=== PATIENT | female | born 1955 | race Caucasian/White ===

== ENCOUNTER → 2016-06-25 | Outpatient (CLI) | payer OTHER ==
[~2016-06-25] MED LIST: CALC150C PO; CETI10TA84 PO; CHOL200010 PO; CYAN100020 SL; CYCL10TA6 PO; LEVO125T5 PO; MULT-506 PO; NASONEX NAE; NXM/40 PO; TRAM-10 PO
[2016-06-25 09:34] LABS: BASO % 0.2 %; BASO ABS # 0.01 K/uL (0-0.2); COMPLETE YES; EOS % 1.2 %; HEMATOCRIT 39.6 % (37-47); LYMPH % 44.1 %; MEAN CELL VOLUME 90.6 fL (80-100); MEAN CORPUSCULAR HEMOGLOBIN 29.7 pg (25-34); MEAN CORPUSCULAR HGB CONC 32.8 g/dl (32-36); MEAN PLATELET VOLUME 9.7 fL (7.4-10.4); MONO % 7.1 %; NEUT % 47.4 %; PLATELET COUNT 207 K/uL (130-400); RED BLOOD COUNT 4.37 M/uL (4.2-5.4); WHITE BLOOD COUNT 4.08 K/uL (4.8-10.8)
[2016-06-25 09:50] LABS: ALKALINE PHOSPHATASE 56 U/L (45-117); ALT/SGPT 24 U/L (12-78); AST/SGOT 18 U/L (15-37); BLOOD UREA NITROGEN 14 mg/dl (7-18); BUN/CREATININE RATIO 23.1 (10-20); CALCIUM 9.3 mg/dl (8.5-10.1); CARBON DIOXIDE 33 mmol/L (21-32); CHLORIDE 107 mmol/L (98-107); CREATININE 0.62 mg/dl (0.60-1.20); GLUCOSE 87 mg/dl (70-99); HDL CHOLESTEROL 61 mg/dl; POTASSIUM 3.9 mmol/L (3.5-5.1); SODIUM 143 mmol/L (136-145); TRIGLYCERIDES 128 mg/dl (0-150); VERY LOW DENSITY LIPOPROT CALC 26 mg/dl
[2016-06-25 10:06] LABS: ALB/GLOB RATIO 1.1 (0.9-2); CHOLESTEROL 197 mg/dl (0-200); CHOLESTEROL/HDL RATIO 3.2; LDL CHOLESTEROL CALCULATED 110 mg/dl; THYROID STIMULATING HORMONE 0.972 uIu/ml (0.300-4.500)
== END | disposition home or self-care (01) ==
LOC: C.LAB 07:38
PROVIDERS: ATTEND Internal Medicine
DX: E78.5 Hyperlipidemia, unspecified (principal); E88.9 Metabolic disorder, unspecified; E06.3 Autoimmune thyroiditis; E55.9 Vitamin D deficiency, unspecified

== ENCOUNTER → 2016-06-26 | Outpatient (CLI) | payer OTHER ==
--- NOTE | 2016-06-27 13:18 | MAMMOGRAPHY REPORT ---
BILATERAL DIGITAL SCREENING MAMMOGRAM TOMOSYNTHESIS WITH CAD: 06/26/2016 CLINICAL HISTORY: Routine screening. Patient has no complaints. TECHNIQUE: Breast tomosynthesis in addition to standard 2D mammography was performed. Current study was also evaluated with a Computer Aided Detection (CAD) system. COMPARISON: Comparison is made to exams dated: 06/21/2015 mammogram, 09/14/2011 mammogram, 09/11/2010 m ammogram - [facility], 09/14/2008, 07/23/2006, and 09/29/2004 mammogram - [facility]. BREAST COMPOSITION: There are scattered areas of fibroglandular density in both breasts. FINDINGS: A linear scar marker overlies the upper outer quadrant of the left breast. There are stab le intramammary lymph nodes in the left lateral breast. Scattered benign-appearing microcalcificati ons. No new suspicious mass, architectural distortion or cluster of microcalcifications is seen. IMPRESSION: ACR BI-RADS CATEGORY 2: BENIGN There is no mammographic evidence of malignancy. A 1 year screening mammogram is recommended. The p atient will receive written notification of the results. Approximately 10% of breast cancers are not detected with mammography. A negative mammographic repor t should not delay biopsy if a clinically suggestive mass is present. Dayan Bashir M.D. ay/:06/26/2016 17:03:01 Booster Pump Operator: Antoinette HAMPTON(Guido)([place]), [facility] letter sent: Normal 1/2 BI-RADS Code: ACR BI-RADS Category 2: Benign
== END | disposition home or self-care (01) ==
LOC: C.MAMM 15:08
PROVIDERS: ATTEND Internal Medicine
DX: Z12.31 Encounter for screening mammogram for malignant neoplasm of breast (principal); Z80.3 Family history of malignant neoplasm of breast

== ENCOUNTER → 2016-08-31 | Outpatient (CLI) | payer OTHER ==
[~2016-08-31] MED LIST changes: +LEVO125T4 PO; -LEVO125T5 PO
--- NOTE | 2016-08-31 14:30 | DIAGNOSTIC IMAGING REPORT ---
LEFT HIP UNILATERAL 2 VIEWS CLINICAL HISTORY: Left hip pain COMPARISON: None. DISCUSSION: No acute fractures or dislocations are visualized. There are no erosive or destructive changes. The joint space appears relatively well preserved for age. There is subtle calcification of the labrum IMPRESSION: No acute fractures. No evidence of significant joint space narrowing Electronically signed by: Raf Brice M.D. 08/31/2016 2:29 PM Dictated Date/Time: 08/31/2016 2:28 PM
--- NOTE | 2016-08-31 14:31 | DIAGNOSTIC IMAGING REPORT ---
RIGHT HIP UNILATERAL 2 VIEWS CLINICAL HISTORY: Right hip pain COMPARISON: None. DISCUSSION: No acute fractures are visualized. There are no erosive or destructive changes. There is mild osteoarthritic change with mild joint space narrowing. There is no evidence for soft tissue swelling. IMPRESSION: Mild osteoarthritic change. No fractures identified. Electronically signed by: Raf Brice M.D. 08/31/2016 2:30 PM Dictated Date/Time: 08/31/2016 2:29 PM
== END | disposition home or self-care (01) ==
LOC: C.RAD1850 14:12
PROVIDERS: ATTEND Internal Medicine
DX: M25.559 Pain in unspecified hip (principal)

== ENCOUNTER → 2016-11-29 | Outpatient (CLI) | payer OTHER ==
--- NOTE | 2016-11-29 15:44 | DIAGNOSTIC IMAGING REPORT ---
BONE SCAN 3 PHASE LIMITED CLINICAL HISTORY: Right knee pain. History of bilateral total knee arthroplasties. COMPARISON STUDY: Bone scan performed July 2008, conventional radiographic study dated 11/26/2016 FINDINGS: The patient was injected with 25.7 mCi of technetium 99m MDP. A vascular sequence centered on the knees was performed. Blood flow appear normal and symmetric. Blood pool images reveal photopenic defects consistent with bilateral knee arthroplasties. Blood pool images were otherwise normal. Delayed images of both lower legs were performed. There are photopenic defects involving each the consistent with bilateral knee arthroplasties. There is very minor asymmetric increased activity within the proximal tibial metaphysis beneath the prosthesis. This remains unchanged from the 2008 study and is unlikely to be of clinical significance. Activity is otherwise symmetric. IMPRESSION: No change from the 2009 study. Evidence of bilateral total knee arthroplasties. No significant pathologic activity Electronically signed by: Raf Brice M.D. 11/29/2016 3:42 PM Dictated Date/Time: 11/29/2016 3:38 PM
== END | disposition home or self-care (01) ==
LOC: C.NUCL 12:03
PROVIDERS: ATTEND Orthopaedic Surgery Sports Medicine
DX: T84.84XA Pain due to internal orthopedic prosthetic devices, implants and grafts, initial encounter (principal); Y83.1 Surgical operation with implant of artificial internal device as the cause of abnormal reaction of the patient, or of later complication, without mention of misadventure at the time of the procedure

== ENCOUNTER → 2017-06-27 | Outpatient (CLI) | payer OTHER ==
[~2017-06-27] MED LIST changes: -LEVO125T4 PO; +LEVO125T5 PO
--- NOTE | 2017-06-28 07:49 | MAMMOGRAPHY REPORT ---
BILATERAL DIGITAL SCREENING MAMMOGRAM TOMOSYNTHESIS WITH CAD: 06/27/2017 CLINICAL HISTORY: Routine screening. Patient has no complaints. TECHNIQUE: Breast tomosynthesis in addition to standard 2D mammography was performed. Current study was also evaluated with a Computer Aided Detection (CAD) system. COMPARISON: Comparison is made to exams dated: 06/26/2016 mammogram, 06/21/2015 mammogram, 09/14/2011 jordy mogram, 09/11/2010 mammogram - [facility], 09/14/2008, and 07/23/2006. BREAST COMPOSITION: There are scattered areas of fibroglandular density in both breasts. FINDINGS: No suspicious masses, calcifications, or areas of architectural distortion are noted in ei ther breast. There has been no significant interval change compared to prior exams. Bilateral benign -appearing calcifications are not significantly changed. A linear scar marker denotes a scar on the left superior breast. IMPRESSION: ACR BI-RADS CATEGORY 2: BENIGN There is no mammographic evidence of malignancy. A 1 year screening mammogram is recommended. The pa tient will receive written notification of the results. Approximately 10% of breast cancers are not detected with mammography. A negative mammographic report should not delay biopsy if a clinically suggestive mass is present. Cristal Garza M.D. ah/:06/27/2017 16:39:04 Mill Worker: Rashmi HAMPTON(Guido)([place])([place]), [facility] letter sent: Normal 1/2 BI-RADS Code: ACR BI-RADS Category 2: Benign
== END | disposition home or self-care (01) ==
LOC: C.MAMM 15:00
PROVIDERS: ATTEND Internal Medicine
DX: Z12.31 Encounter for screening mammogram for malignant neoplasm of breast (principal)

== ENCOUNTER → 2017-09-24 | Outpatient (CLI) | payer OTHER ==
[2017-09-24 13:04] LABS: BASO ABS # 0.04 K/uL (0-0.2); EOS % 1.7 %; EOS ABS # 0.07 K/uL (0-0.5); HEMATOCRIT 39.9 % (37-47); HEMOGLOBIN 13.2 g/dL (12.0-16.0); IG# 0.01 K/uL (0.00-0.02); LYMPH % 47.6 %; LYMPH ABS # 1.99 K/uL (1.2-3.4); MEAN CELL VOLUME 88.5 fL (80-100); MEAN CORPUSCULAR HEMOGLOBIN 29.3 pg (25-34); MEAN CORPUSCULAR HGB CONC 33.1 g/dl (32-36); MONO % 7.4 %; MONO ABS # 0.31 K/uL (0.11-0.59); NEUT % 42.1 %; NEUT ABS # 1.76 K/uL (1.4-6.5); PLATELET COUNT 229 K/uL (130-400); WHITE BLOOD COUNT 4.18 K/uL (4.8-10.8)
[2017-09-24 14:10] LABS: ALBUMIN 3.5 gm/dl (3.4-5.0); ALKALINE PHOSPHATASE 62 U/L (45-117); ALT/SGPT 19 U/L (12-78); AST/SGOT 18 U/L (15-37); BLOOD UREA NITROGEN 18 mg/dl (7-18); CALCIUM 8.4 mg/dl (8.5-10.1); CARBON DIOXIDE 25 mmol/L (21-32); CHOLESTEROL 185 mg/dl (0-200); CREATININE 0.64 mg/dl (0.60-1.20); GLUCOSE 87 mg/dl (70-99); LDL CHOLESTEROL CALCULATED 107 mg/dl; POTASSIUM 3.6 mmol/L (3.5-5.1); SODIUM 141 mmol/L (136-145); TOTAL PROTEIN 7.1 gm/dl (6.4-8.2)
== END | disposition home or self-care (01) ==
LOC: C.LABPBG 07:39
PROVIDERS: ATTEND Internal Medicine
DX: Z00.00 Encounter for general adult medical examination without abnormal findings (principal); E78.5 Hyperlipidemia, unspecified; E06.3 Autoimmune thyroiditis; E55.9 Vitamin D deficiency, unspecified

== ENCOUNTER 2025-01-05 07:06 | Observation (INO) ==
--- NOTE | 2024-12-09 14:58 | PAT Medication Instructions ---
Medication Instructions Date of Service December 09, 2024 Home Medications Medication Instructions Recorded amoxicillin 500 mg tablet 500 mg PO .COMPLEX PRN 4 hours 01/22/19 prior to dental procedure #8 tabs mometasone 50 mcg/actuation nasal 1 spray intranasal DAILY PRN 06/08/20 spray allergy symptoms #17 grams meclizine 25 mg tablet 25 mg PO BID PRN dizziness #30 tabs 02/15/23 cyclobenzaprine 10 mg tablet 10 mg PO TID PRN muscle spasm #90 07/08/24 tabs tramadol 50 mg tablet 50 mg PO Q12H PRN pain #60 tabs 07/08/24 cetirizine 10 mg tablet 10 mg PO HS cholecalciferol (vitamin D3) 50 mcg (2,000 unit) capsule 2,000 units PO HS One Daily Multivitamins with Minerals 4.5 mg PO HS amoxicillin 500 mg tablet 500 mg PO .COMPLEX PRN 4 hours prior to dental procedure ascorbic acid (vitamin C) 500 mg chewable tablet 500 mg PO HS mometasone 50 mcg/actuation nasal spray 1 spray intranasal DAILY PRN allergy symptoms meclizine 25 mg tablet 25 mg PO BID PRN dizziness cyclobenzaprine 10 mg tablet 10 mg PO TID PRN muscle spasm tramadol 50 mg tablet 50 mg PO Q12H PRN pain cyanocobalamin (vitamin B-12) 500 mcg tablet 500 mcg PO HS diphenhydramine 25 mg-acetaminophen 500 mg tablet (Tylenol PM Extra Strength) 2 tab PO HS esomeprazole magnesium 40 mg capsule,delayed release 40 mg PO HS levothyroxine 125 mcg tablet 125 mcg PO HS melatonin 10 mg tablet 10 mg PO HS scopolamine base 1 mg over 3 days transdermal patch 1 patch transdermal Q72H PRN Motion Sickness zinc 50 mg tablet 50 mg PO HS Continue as directed amoxicillin 500 mg tablet 500 mg PO .COMPLEX PRN 4 hours prior to dental procedure scopolamine base 1 mg over 3 days transdermal patch 1 patch transdermal Q72H PRN Motion Sickness Take morning of surgery With a small sip of water, OTHERWISE NOTHING TO EAT OR DRINK AFTER MIDNIGHT: mometasone 50 mcg/actuation nasal spray 1 spray intranasal DAILY PRN allergy symptoms (if needed) meclizine 25 mg tablet 25 mg PO BID PRN dizziness (if needed) cyclobenzaprine 10 mg tablet 10 mg PO TID PRN muscle spasm (if needed) tramadol 50 mg tablet 50 mg PO Q12H PRN pain (if needed) Take evening before surgery cetirizine 10 mg tablet 10 mg PO HS cholecalciferol (vitamin D3) 50 mcg (2,000 unit) capsule 2,000 units PO HS One Daily Multivitamins with Minerals 4.5 mg PO HS ascorbic acid (vitamin C) 500 mg chewable tablet 500 mg PO HS mometasone 50 mcg/actuation nasal spray 1 spray intranasal DAILY PRN allergy symptoms (if needed) meclizine 25 mg tablet 25 mg PO BID PRN dizziness (if needed) cyclobenzaprine 10 mg tablet 10 mg PO TID PRN muscle spasm (if needed) tramadol 50 mg tablet 50 mg PO Q12H PRN pain (if needed) cyanocobalamin (vitamin B-12) 500 mcg tablet 500 mcg PO HS diphenhydramine 25 mg-acetaminophen 500 mg tablet (Tylenol PM Extra Strength) 2 tab PO HS esomeprazole magnesium 40 mg capsule,delayed release 40 mg PO HS levothyroxine 125 mcg tablet 125 mcg PO HS melatonin 10 mg tablet 10 mg PO HS zinc 50 mg tablet 50 mg PO HS Other Notes If you have any questions please call us at [phone] or [phone] or [phone] or [phone]
--- NOTE | 2024-12-14 10:41 | Anesthesiology Consultation ---
Date of Service December 14, 2024 Assessment & Plan (1) Encounter for pre-operative examination: - Infectious disease screening: Per assessment on 12/14/24- No known recent infectious disease contacts or current infectious disease symptoms. - Outpatient joint assessment: Pt currently scheduled for inpatient pathway. If surgeon requests review for outpatient joint pathway, patient is an acceptable candidate for outpatient joint program from anesthesia standpoint pending surgeon's office assessment that patient is motivated, has good support and completes [facility] Day Joint Program preop requirements. - Anesthesia hx: Patient states that they were unable to place spinal/neuraxial block for ~2003 knee replacement so surgery was done under [place]. Subsequent knee replacement attempt for spinal/neuraxial block was done "at a higher location" and successful; able to use neuraxial anesthesia perioperatively. Chart Review Chart Review: Acceptable Risk for Surgery and Patient seen in Pre Admission Testing Teaching & Discussion Pre-Anesthesia Teaching/Discussion Notes: Instructed NPO after midnight before surgery,except medications with 15 cc of water. Medication instructions provided according to the PAT guidelines. History Surgery Operation Date: 01/05/25 10:40 Proposed Procedures p Right Total Hip Arthroplasty - Jaskaran Solorzano MD Height/Weight Height: 5 ft 5.5 in Weight: 97.069 kg Allergies Allergy/AdvReac Type Severity Reaction Status Date / Time codeine Allergy Severe Tongue Verified 12/08/24 15:16 numbness morphine Allergy Severe Itching, Verified 12/08/24 15:16 throat swelling NSAIDS (Non-Steroidal Allergy Unknown Told to Verified 12/08/24 15:16 Anti-Inflamma avoid d/t gastric bypass Medications Home Medications Medication Instructions Recorded Confirmed Last Taken cetirizine 10 mg tablet 10 mg PO HS 01/21/19 12/01/24 Unknown cholecalciferol (vitamin D3) 50 2,000 units PO HS 01/21/19 12/01/24 Unknown mcg (2,000 unit) capsule multivit with minerals-ferrous 4.5 mg PO HS 01/21/19 12/01/24 Unknown sulfate 4.5 mg iron oral powder packet (One Daily Multivitamins with Minerals) amoxicillin 500 mg tablet 500 mg PO .COMPLEX PRN 4 hours 01/22/19 12/01/24 Unknown prior to dental procedure #8 tabs ascorbic acid (vitamin C) 500 mg 500 mg PO HS 07/20/19 12/01/24 Unknown chewable tablet mometasone 50 mcg/actuation nasal 1 spray intranasal DAILY PRN 06/08/20 12/01/24 Unknown spray allergy symptoms #17 grams meclizine 25 mg tablet 25 mg PO BID PRN dizziness #30 tabs 02/15/23 12/01/24 Unknown cyclobenzaprine 10 mg tablet 10 mg PO TID PRN muscle spasm #90 07/08/24 12/01/24 Unknown tabs tramadol 50 mg tablet 50 mg PO Q12H PRN pain #60 tabs 07/08/24 12/01/24 Unknown cyanocobalamin (vitamin B-12) 500 500 mcg PO HS 12/01/24 12/01/24 Unknown mcg tablet diphenhydramine 25 2 tab PO HS 12/01/24 12/01/24 Unknown mg-acetaminophen 500 mg tablet (Tylenol PM Extra Strength) esomeprazole magnesium 40 mg 40 mg PO HS 12/01/24 12/01/24 Unknown capsule,delayed release levothyroxine 125 mcg tablet 125 mcg PO HS 12/01/24 12/01/24 Unknown melatonin 10 mg tablet 10 mg PO HS 12/01/24 12/01/24 Unknown scopolamine base 1 mg over 3 days 1 patch transdermal Q72H PRN 12/01/24 12/01/24 Unknown transdermal patch Motion Sickness zinc 50 mg tablet 50 mg PO HS 12/01/24 12/01/24 Unknown Past Medical History Medical History Allergic rhinitis Arthritis Degenerative disc disease GERD (gastroesophageal reflux disease) History of blood transfusion post-op History of high cholesterol "resolved" History of hypertension "resolved" Hx of cardiac murmur Remotely heard per patient, no noted murmur on PAT exam 12/14/24 Stress echo 10/2008: Mild MR Hx of Muna thyroiditis Hx of motion sickness Hx of rheumatic fever Hypothyroidism Insomnia Osteoarthritis Spinal stenosis Exercise / Class Metabolic Activity II 4-5 Yardwork/Stairs/Walk up hill Past Family History Family History Father History of heart valve replacement Bladder cancer Heart disease Mother Lung cancer Cancer Brother Lung cancer Cancer Sister Breast cancer Other No family history of adverse response to anesthesia Denies family history of Colon cancer Ovarian cancer Prostate cancer Past Surgical History Surgical History H/O arthroscopic knee surgery R/L H/O non-cataract eye surgery Right, laser H/O partial thyroidectomy History of cardiac cath Age 40s- no stents History of colonoscopy History of dilatation and curettage History of esophagogastroduodenoscopy (EGD) History of hysterectomy History of lumbar fusion History of postoperative nausea and vomiting History of tonsillectomy History of tooth extraction History of total knee replacement R/L Patient states that they were unable to place spinal/neuraxial block for ~07 06 knee replacement so surgery was done under [place]. Subsequent knee replacement attempt for spinal/neuraxial block was done "at a higher location" and successful; able to use neuraxial anesthesia perioperatively. Hx of gastric bypass S/P appendectomy S/P carpal tunnel release R/L S/P cholecystectomy Past Anesthesia History No Family Hx of Anesthesia Complications and Other (Patient states that they were unable to place spinal/neuraxial block for ~2003 knee replacement so surgery was done under [place]. Subsequent knee replacement attempt for spinal/neuraxial block was done "at a higher location" and successful; able to use neuraxial anesthesia perioperatively. ) History of PONV History of PONV and Hx of Motion Sickness Social History Smoking Status: Never smoker Do You Dip or Chew Tobacco: No Hx Alcohol Use: Yes alcohol intake frequency: holidays/special occasions only Hx Substance Use: No substance use type: does not use Review of Systems Patient denies chest pain, shortness of breath, dyspnea on exertion, fever, chills, cough, wheezing. Physical Exam Vital Signs BP 133/78 P 71 TEMP 98.1 SP02 97%RA RESP 16 Physical Full cervical extension range of motion. Full TMJ range of motion. TMD 3 finger breaths Mallampati Score I Dentition: missing molars, + dental worship (left upper side) Lungs: clear throughout to auscultation Cardiac: regular rate and rhythm, no murmurs noted Spine: normal Carotid arteries: negative bruit Extremities: no LE edema Lab Results Anesthesia Preop Results Results Anesthesia Widget: WBC 5.18 K/ul (4.8-10.8) 12/14/24 Hgb 12.6 g/dl (12.0-16.0) 12/14/24 Hct 38.5 % (37.0-47.0) 12/14/24 Plt 253 K/uL (130-400) 12/14/24 Na 141 mmol/L (136-145) 12/14/24 K 4.1 mmol/L (3.5-5.1) 12/14/24 Cl 107 mmol/L (98-107) 12/14/24 CO2 28 mmol/L (21-32) 12/14/24 BUN 19 mg/dl (6-23) 12/14/24 Creat 0.65 mg/dl (0.6-1.2) 12/14/24 Glucose Level 99 mg/dl (70-99(Fasting)) 12/14/24 PT 10.3 Seconds (9.0-12.0) 12/14/24 PTT 27 Seconds (21-31) 12/14/24 INR 1.0 (0.9-1.1) 12/14/24 Blood Type O Positive 12/14/24 Antibody Screen NEGATIVE 12/14/24 Testing Electrocardiogram Date: 12/14/24 NSR at 76bpm. "Normal ECG" Chest X-Ray Date: 12/14/24 FINDINGS: Heart size and pulmonary vasculature are normal. No consolidation or pleural effusion. IMPRESSION: No acute findings.
--- NOTE | 2024-12-28 13:14 | History & Physical Report ---
Date of Service December 28, 2024 Assessment & Plan (1) Osteoarthritis of right hip: 69-year-old female with history of bilateral knee replacements in the past all along with spine surgery with advanced right hip arthritis. Certainly some of her pain is coming from her hip but not all of it. 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 Plan: We discussed treatment option with the patient. After extensive discussion she elected proceed with right hip replacement. The right cemented total hip placement were explained. Informed consent was obtained. We will be prepared to use an uncemented implant or a cemented implant depending on her bone quality. She does have a history of gastric bypass surgery and therefore bone may be a little bit less predictable. She is planned to be discharged to home with home health. She can have her correspondence clerk come and assist with her 's care. Will likely use a wound VAC for a dressing. She will follow back in clinic 2 weeks postop. Will use a aspirin for DVT prophylaxis. (2) Lumbar radiculopathy: History of Present Illness Chief Complaint: . Persistent right hip pain. Primary Care Provider: Parag Frank MD . The patient is a 69-year-old female referred by Dr. Pan for treatment of her hip. She got a long history of the joint problems and had both of her knees replaced by Dr. Junior in . Also had spine surgery by Dr. Goldman in the past. The knees are doing okay but not great. Over the years she developed increased pain discomfort in her right hip buttock, hip and leg and thigh pain. She has resorted to using a cane to get around. X-rays show advanced hip arthritis. She would like to have this fixed. 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 Allergies Allergy/AdvReac Type Severity Reaction Status Date / Time codeine Allergy Severe Tongue Verified 12/08/24 15:16 numbness morphine Allergy Severe Itching, Verified 12/08/24 15:16 throat swelling NSAIDS (Non-Steroidal Allergy Unknown Told to Verified 12/08/24 15:16 Anti-Inflamma avoid d/t gastric bypass Home Medications Medication Instructions Recorded Confirmed Type cetirizine 10 mg tablet 10 mg PO HS 01/21/19 12/01/24 History cholecalciferol (vitamin D3) 50 2,000 units PO HS 01/21/19 12/01/24 History mcg (2,000 unit) capsule multivit with minerals-ferrous 4.5 mg PO HS 01/21/19 12/01/24 History sulfate 4.5 mg iron oral powder packet (One Daily Multivitamins with Minerals) amoxicillin 500 mg tablet 500 mg PO .COMPLEX PRN 4 hours 01/22/19 12/01/24 Rx prior to dental procedure #8 tabs ascorbic acid (vitamin C) 500 mg 500 mg PO HS 07/20/19 12/01/24 History chewable tablet mometasone 50 mcg/actuation nasal 1 spray intranasal DAILY PRN 06/08/20 12/01/24 Rx spray allergy symptoms #17 grams meclizine 25 mg tablet 25 mg PO BID PRN dizziness #30 tabs 02/15/23 12/01/24 Rx cyclobenzaprine 10 mg tablet 10 mg PO TID PRN muscle spasm #90 07/08/24 12/01/24 Rx tabs tramadol 50 mg tablet 50 mg PO Q12H PRN pain #60 tabs 07/08/24 12/01/24 Rx cyanocobalamin (vitamin B-12) 500 500 mcg PO HS 12/01/24 12/01/24 History mcg tablet diphenhydramine 25 2 tab PO HS 12/01/24 12/01/24 History mg-acetaminophen 500 mg tablet (Tylenol PM Extra Strength) esomeprazole magnesium 40 mg 40 mg PO HS 12/01/24 12/01/24 History capsule,delayed release levothyroxine 125 mcg tablet 125 mcg PO HS 12/01/24 12/01/24 History melatonin 10 mg tablet 10 mg PO HS 12/01/24 12/01/24 History scopolamine base 1 mg over 3 days 1 patch transdermal Q72H PRN 12/01/24 12/01/24 History transdermal patch Motion Sickness zinc 50 mg tablet 50 mg PO HS 12/01/24 12/01/24 History Past Med/Surg History Problem List Encounter for pre-operative examination Osteoarthritis of right hip Vitamin D deficiency (Acute) Lumbar radiculopathy (Acute) Muna's thyroiditis (Acute) Gastro-esophageal reflux (Acute) Dyslipidemia (Acute) Medical History History of blood transfusion post-op Osteoarthritis Spinal stenosis Degenerative disc disease Arthritis GERD (gastroesophageal reflux disease) Hypothyroidism Hx of Muna thyroiditis Insomnia Hx of motion sickness History of high cholesterol "resolved" Hx of cardiac murmur Remotely heard per patient, no noted murmur on PAT exam 12/14/24 Stress echo 10/2008: Mild MR Hx of rheumatic fever History of hypertension "resolved" Allergic rhinitis Surgical History History of postoperative nausea and vomiting History of dilatation and curettage H/O arthroscopic knee surgery R/L History of lumbar fusion History of total knee replacement R/L Patient states that they were unable to place spinal/neuraxial block for ~2003 knee replacement so surgery was done under [place]. Subsequent knee replacement attempt for spinal/neuraxial block was done "at a higher location" and successful; able to use neuraxial anesthesia perioperatively. History of esophagogastroduodenoscopy (EGD) History of colonoscopy H/O partial thyroidectomy History of tooth extraction History of tonsillectomy H/O non-cataract eye surgery Right, laser History of hysterectomy Hx of gastric bypass History of cardiac cath Age 40s- no stents S/P carpal tunnel release R/L S/P cholecystectomy S/P appendectomy Family History Father History of heart valve replacement Bladder cancer Heart disease Mother Lung cancer Cancer Brother Lung cancer Cancer Sister Breast cancer Other No family history of adverse response to anesthesia Denies family history of Colon cancer Ovarian cancer Prostate cancer Social History Smoking Status: Never smoker Second Hand Exposure: Yes (as a child and used to smoke); Do You Dip or Chew Tobacco: No; Hx Alcohol Use: Yes Hx Substance Use: No Preferred Language: Syriac Communication Ability: Effective Visual Impairment: No Limitations Hearing Ability: Normal Television Producer Required: No Beliefs That Will Affect Care: None marital status: Current Living Situation: Spouse current occupational status: previously employed and retired Feels Safe at Home: Yes Childhood Exposure to Second-Hand Smoke: Yes Diet: low carbohydrate and regular caffeine: Yes Dental Care, Regularly: Yes Physical Activity Frequency: 3-4 Times per Week Seatbelt Use: always Sunscreen Use: Yes Assistive Devices: Cane and Glasses Review of Systems All systems reviewed & are unremarkable except as noted in HPI & below. Physical Exam . Physical examination reveals a pleasant middle-age female. Looks in reasonably good health. Examination of right hip reveal patient walks with use of a cane. Leg lengths appear pretty equal. She does have pain and stiffness with hip motion. She can internally rotate to neutral at best. She got a well-healed incision over her knee replacement below. No knee effusion. Range of motion of the knee is 0-1 15. No instability. Constitutional WD/WN, vitals as above Respiratory normal respiratory effort, lungs clear to auscultation Cardiovascular RRR, no murmur, no edema Gastrointestinal (Abdomen) normal bowel sounds, soft, nontender, no hepatosplenomegaly Results & Data Results & Data Laboratory Results . Diagnostic Findings . X-rays of the right hip were reviewed. She was advanced right hip arthritis. She got complete loss of superior joint space. She does have significant lumbar spondylosis as well. PG Care Time/CCT Total # of Minutes Spent Total Time Spent with Patient: Total time spent is greater than 50% in coordination of care (as documented) at patient's floor/unit and/or counseling patient: Coding Level of Care Code None Diagnoses Osteoarthritis of right hip M16.11 Lumbar radiculopathy M54.16
[~2025-01-05 07:06] MED LIST changes: +BUPIVACAINE 0.5 % 5 MG/1 ML PF 10ML VIAL ONE; -CALC150C PO; -CETI10TA84 PO; -CHOL200010 PO; -CYAN100020 SL; -CYCL10TA6 PO; -LEVO125T5 PO; -MULT-506 PO; -NASONEX NAE; -NXM/40 PO; -TRAM-10 PO
[2025-01-05] MEDS ORDERED: MIDAZOLAM HCL 1 MG/ML 2ML VIAL ONE ×2 (07:28→10:05)
[2025-01-05] MEDS: ACETAMINOPHEN 500 MG TAB PO SCH ×2 (07:28→14:22)
[2025-01-05] MEDS ORDERED: PROPOFOL IV EMULSION 10 MG/ML 100 ML VIAL IV ONE (07:28)
[2025-01-05] MEDS: dexAMETHasone**PF** 10 MG/ML VIAL IV SCH (07:28)
[2025-01-05] MEDS ORDERED: ONDANSETRON INJ 2 MG/ML 2 ML VIAL ONE (07:28)
[2025-01-05] MEDS ORDERED: LIDOCAINE 2% 2 ML VIAL/AMP(20MG/ML) INFIL ONE (07:28)
[2025-01-05] MEDS: CeleBREX 200 MG CAP PO SCH (07:29)
[2025-01-05] MEDS: METOCLOPRAMIDE HCL 10 MG TABLET PO SCH (07:29)
[2025-01-05] MEDS: FAMOTIDINE 20 MG TAB PO SCH (07:29)
[2025-01-05] MEDS: LR 60ML/HR IV SCH (07:30)
[2025-01-05] MEDS: LR 500ML BOLUS, THEN 15ML/HR IV SCH (07:45)
--- NOTE | 2025-01-05 08:36 | History & Physical Bridge Note ---
Date of Service January 05, 2025 History & Physical Bridge Note I have examined the patient, reviewed the History & Physical and in the interval since the performance of the History & Physical I have noted the following changes of clinical significance: no changes noted
[2025-01-05] MEDS: TRANEXAMIC ACID 1,000 MG **IV Pre-op IV SCH (08:44)
[2025-01-05] MEDS ORDERED: ATROPINE SULFATE 0.1 MG/ML 10ML SYR IV PRN (08:56)
[2025-01-05] MEDS ORDERED: PROPOFOL IV EMULSION 10 MG/ML 20 ML VIAL IV ONE ×3 (09:45)
[2025-01-05] MEDS: BUPIVACAINE/EPINEPHRINE 0.5% MPF 1:200,000 30 ML VIAL ONE (09:49)
--- NOTE | 2025-01-05 11:10 | Operative Report ---
PG Post Operative Report Pre & Post Diagnosis Operation Date: 01/05/25 09:00 Pre-Op Diagnosis: Right Hip Osteoarthritis Post-Op Diagnosis: Right Hip Osteoarthritis I identified the patient and participated in the time-out.: Yes Procedure Operation Date: 01/05/25 09:00 Actual Procedures p Right Total Hip Arthroplasty(Right) - Jaskaran Solorzano MD Surgeon Jaskaran Solorzano MD Junior Web Developer Amaury White PA-C Estimated Blood Loss 200 Findings Consistent with Post-Op Diagnosis Operative findings were advanced right hip arthritis. She had a moderate-sized joint effusion. Fairly minimal osteophyte formation. Full-thickness cartilage loss of the femoral head and acetabulum. Specimens Right femoral head sent for pathology. Anesthesia Type Spinal MAC Complications none Disposition Accompanied Patient To Recovery: No Indications The patient is a 69-year-old female who has a history of bilateral knee replacements in the past. Over the years she has developed persistent progressive increasing right leg pain and discomfort. She has she failed all conservative measures. X-rays revealed advanced right hip arthritis. She elected proceed with total hip arthroplasty. Description of Procedure Operative implants consist of: 1 Biomet G7 size 50 mm acetabular shell. 2. 6.5 cancellous acetabular screws 1 at 35 mm in length and 125 mm length. 3. [place] hole excavator operator. 4. Highly cross-linked polyethylene liner with a 50 mm outer diam and 36 mm inner diameter. 5. DePuy Karaya size 12 short neck 125 degree angle femoral stem. 6. +5/36 mm ceramic articular ball. The patient was taken the op room, identified, placed on the operating table in the supine position. All contact areas were appropriately padded. IV antibiotics were provided by anesthesia team. A spinal anesthetic had been provided in the holding area. A Goodwin catheter was placed in sterile fashion. The patient then placed in the left lateral decubitus position. An axillary roll was placed. Distal Birkett position was used for positioning. The right hip and leg were then prepped and draped in usual sterile fashion. A posterior lateral approach of the right hip was then performed to a curvilinear incision centered over the greater trochanter. Sharp dissection Through subcutaneous tissue that was over the IT band gluteal fascia. She did have a very thick soft tissue envelope. The IT band gluteal fascia were then incised longitudinally in line with skin incision. The underlying greater bursa was excised. The piriformis and external rotators along with the posterior joint capsule were then released from the posterior aspect the hip as a single layer. The hip was internally rotated and dislocated. A femoral neck osteotomy cut was made with Final Cut about 7 mm above the lesser trochanter. Femoral head was removed and sent for pathology. The femur was retracted anteriorly. Attention drawn to the acetabulum. The acetabular labrum was excised. The Pulvinal fat was excised. Sequential reaming the acetabular was then performed again with a size 43 and progressing up to 49. I reamed a little bit with a 50 reamer and then placed a 50 mm Biomet acetabular shell in about 4 degrees lateral opening and 20 degrees of anteversion. It was fixed with two 6.5 screws. A trial liner was placed. Attention drawn the femur. The proximal femur was entered with cookie-cutter followed by canal finder. I then broached again the size 8 and progressing up to 12. Got excellent fit of the 12. Trial of the hip in the +5 articular ball seemed recreate leg lengths equal. That was a little bit tight in extension but we want to maximize her stability due to her history of spine surgery. We elect to place these implants. All trial implants were removed. [place] hole excavator operator was placed. Highly cross- linked polyethylene liner was placed. A size 12 KLA short neck 125 degree angle femoral stem was placed. A +5/36 mm ceramic articular ball was placed. Hip was located once again found to be stable. Attention drawn toward closing. The wound was irrigated coconuts and pulsatile lavage solution. I did inject locally with 60 cc of half percent Marcaine with epinephrine. Attention drawn toward closing. Wound was irrigated. Some pulsatile lavage solution. I did inject locally with 60 cc of percent Marcaine with epinephrine. The posterior capsule and external rotators then repaired through drill holes in the posterior trochanter with #2 Tycron suture. The IT band and gluteal fascia then closed with #1 PDS suture in a running fashion. The subcutaneous tissue was then closed with 3 layers with 2 deep layers with #2 Vicryl suture and the more superficial layer with 2-0 Dexon suture in a buried interrupted fashion. Skin was then closed with skin ivis. Leg was then cleaned and dried and a Prevena VAC dressing was applied. The patient was then transferred to the recovery room in stable condition. The patient tolerated the procedure well and there were no complications. Amaury White, my physician certified medical assistant, was present for the entire procedure. His assistance was required for proper patient positioning, prepping and draping, surgical exposure, retraction, performed identical details of the operation, placement of the implants, closure of the incision site, and placement of postoperative sterile bandage. I attest to the content of the Intraoperative Record and any orders documented therein. Any exceptions are noted below.
--- NOTE | 2025-01-05 11:32 | XRay Report ---
XR hip 1V RT w pelvis CLINICAL HISTORY: IN PACU - Post Surgical COMPARISON: None FINDINGS: Right hip prosthesis shows no hardware complication. There is expected soft tissue gas. Sk in ivis are present laterally. IMPRESSION: Unremarkable postoperative exam. ACT 112: Negative or not required by law. Electronically signed by: Raymond Allen M.D. 01/05/2025 11:31 AM
[2025-01-05] MEDS: PROMETHAZINE 6.25 MG/50.25 ML BAG IV STA (11:45)
[2025-01-05] MEDS: PROMETHAZINE HCL INJ 25 MG/ML 1 ML VIAL ONE (11:49)
--- NOTE | 2025-01-05 12:22 | Anesthesiology Progress Note ---
Date of Service January 05, 2025 Anesthesia Post Procedure Vital Signs Vital Signs: Temp Pulse Pulse Resp BP BP Pulse Ox 01/05/25 12:00 36.5 C 79 16 136/69 100 01/05/25 11:50 76 16 138/69 97 01/05/25 11:40 78 18 135/72 100 01/05/25 11:30 82 18 134/68 96 01/05/25 11:20 83 19 134/66 100 01/05/25 11:10 84 15 131/62 99 01/05/25 11:01 36.8 C 90 16 125/69 99 01/05/25 07:21 36.7 C 90 20 164/93 H 97 O2 Del Method 01/05/25 12:00 Room Air 01/05/25 11:50 Room Air 01/05/25 11:40 Room Air 01/05/25 11:30 Room Air 01/05/25 11:20 Room Air 01/05/25 11:10 Room Air 01/05/25 11:01 Room Air 01/05/25 07:21 Room Air Pain Intensity Right Hip: Pain Intensity: 3 Transfer of Care Handoff Completed per policy Notes Mental Status: alert / awake / arousable Patient Amnestic to Procedure: Yes Nausea / Vomiting: adequately controlled Pain: adequately controlled Airway Patency, RR, SpO2: stable & adequate BP & HR: stable & adequate Hydration State: stable & adequate Neuraxial Anesthesia: was administered and sensory block is resolving Anesthetic Complications: no major complications apparent
[2025-01-05] MEDS ORDERED: MECLIZINE HCL 25 MG TAB PO PRN (12:36)
[2025-01-05] MEDS ORDERED: NALOXONE HCL 0.4 MG/1 ML VIAL/CARP IV PRN (12:36)
[2025-01-05] MEDS ORDERED: SCOPOLAMINE 1 MG/72 HR TDSY PATCH TD PRN (12:36)
[2025-01-05] MEDS ORDERED: ALUMINUM/MAGNESIUM SUSP 30 ML UDC PO PRN (12:36)
[2025-01-05] MEDS ORDERED: MAGNESIUM HYDROXIDE SUSP 30 ML UDC PO PRN (12:36)
[2025-01-05] MEDS ORDERED: CYCLOBENZAPRINE HCL 10 MG TAB PO PRN (12:36)
[2025-01-05] MEDS: ONDANSETRON INJ 2 MG/ML 2 ML VIAL IV PRN (13:05)
[2025-01-05] MEDS: KETOROLAC TROMETHAMINE 15 MG/ML VIAL IV SCH (13:09)
[2025-01-05] MEDS ORDERED: FLUTICASONE PROPIONATE NA SPR 16 GM BTL NAE PRN (13:10)
[2025-01-05] MEDS: SODIUM CHLORIDE 0.9% 1,000 ML IV SCH (13:11)
[2025-01-05] MEDS ORDERED: ACETAMINOPHEN 500 MG TAB PO SCH (14:00)
[2025-01-05] MEDS: HYDROmorphone INJ 0.5 MG/0.5 ML SYR IV PRN (14:23)
[2025-01-05] MEDS: TRANEXAMIC ACID / 0.7% NACL 1,000 MG/100 ML BAG IV SCH (16:16)
[2025-01-05] MEDS: ASCORBIC ACID 500 MG TAB PO SCH (16:17)
[2025-01-05 19:14] VITALS: RESP 14
[2025-01-05] MEDS: LEVOTHYROXINE SODIUM 125 MCG TABLET PO SCH (20:21)
[2025-01-05] MEDS: DOCUSATE SODIUM 100 MG CAP PO SCH (20:21)
[2025-01-05] MEDS: ASPIRIN 81 MG ECTAB PO SCH (20:21)
[2025-01-05] MEDS: SENNA 8.6 MG TAB PO SCH (20:21)
[2025-01-05] MEDS: CETIRIZINE HCL 10 MG TABLET PO SCH (20:22)
[2025-01-05] MEDS: CYANOCOBALAMIN (B-12) 500 MCG TABLET PO SCH (20:22)
[2025-01-05] MEDS: CHOLECALCIFEROL 25 MCG (1000 UNITS) TAB PO SCH (20:22)
[2025-01-05] MEDS: CEROVITE ADV FORMULA TAB PO SCH (20:22)
[2025-01-05] MEDS ORDERED: NON-FORMULARY MEDICATION (Zinc 50 mg Tablet) PO SCH (21:00)
[2025-01-05] MEDS ORDERED: ASPIRIN 81 MG ECTAB PO SCH (21:00)
[2025-01-05] MEDS ORDERED: SENNA 8.6 MG TAB PO SCH (21:00)
[2025-01-05] MEDS ORDERED: ASCORBIC ACID 500 MG TAB PO SCH (21:00)
[2025-01-05] MEDS ORDERED: NON-FORMULARY MEDICATION (Diphenhydramine-Acetaminophen [Tylenol Pm Extra Strength] 25-500 PO SCH (21:00)
[2025-01-05] MEDS: MELATONIN 3 MG TAB PO SCH (21:20)
[2025-01-05] MEDS: METOCLOPRAMIDE HCL INJ 5 MG/ML 2 ML VIAL IV PRN (23:27)
[2025-01-05] MEDS: CHECK SCOPOLAMINE PATCH PLACEMENT SCH (23:31)
[2025-01-06 06:13] LABS: Hematocrit (blood only) 28.8 % (37.0-47.0); Hemoglobin 9.8 g/dL (12.0-16.0); Immature Granulocytes # (auto) 0.04 K/uL (0.01-0.20); Immature Granulocytes % (auto) 0.4 %; Mean Corpuscular Hemoglobin 29.8 pg (25.0-34.0); Mean Corpuscular Volume 87.5 fL (80.0-100.0); Platelet Count 236 K/uL (130-400); RDW Standard Deviation 42.9 fL (36.4-46.3); Red Blood Count 3.29 M/uL (4.20-5.40); White Blood Count 9.99 K/ul (4.8-10.8)
[2025-01-06 06:31] LABS: Anion Gap 6.0 (3-11); Blood Urea Nitrogen 19.0 mg/dl (6-23); Calcium 8.2 mg/dl (8.6-10.3); Carbon Dioxide 24.0 mmol/L (21-32); Chloride 111.0 mmol/L (98-107); Creatinine Clr Calc Pharmacy 108.5 ml/min; Glucose 99.0 mg/dl (70-99(Fasting)); Potassium 3.9 mmol/L (3.5-5.1); Sodium 141.0 mmol/L (136-145)
[2025-01-06 07:40] VITALS: BP 100/64; PULSE 69; TEMP 97.7; O2SAT 96
[2025-01-06] MEDS: dexAMETHasone 10 MG in SYRINGE 0 ML IV SCH (08:08)
[2025-01-06] MEDS ORDERED: ASCORBIC ACID 500 MG TAB PO SCH (09:00)
[2025-01-06] MEDS ORDERED: MULTIVITAMIN TAB PO SCH (09:00)
--- NOTE | 2025-01-06 09:16 | Orthopedic Progress Note ---
Date of Service January 06, 2025 Assessment & Plan (1) S/P total right hip arthroplasty: * Continue Current Treatment * Disposition: home * Daily treatment: Physical Therapy/ Occupational Therapy per protocol * Weight bearing status: WBAT w/ hip precautions * Continue to monitor for ABLA * Pain control * Maintain Prevena dressing * DVT prophylaxis, ASA * Office/hospital f/u 2 weeks for progress check and staple/suture removal * Plan for discharge today pending PT/OT clearance Subjective . Active Problems: S/p right KYA POD 1 69 y/o female s/p right KYA. Doing well overall, pain managed and improved function. Denies fever/chills, chest pain/SOB, nausea/vomiting. Otherwise no complaints. Review of Systems All systems reviewed & are unremarkable except as noted in HPI & below. Physical Exam . * General: Alert and oriented, no acute distress * Constitutional: well-developed, well-nourished. * Respiratory: Normal respiratory effort, no distress * Gastrointestinal: No tenderness to palpation, no rigidity or guarding. * Skin: No rash or lesion. * Neurologic: Grossly normal * Musculoskeletal: Right hip surgical dressing CDI, Prevena dressing intact, not removed for exam. Otherwise no obvious deformity or overlying skin changes. Diffuse TTP proximal thigh and hip region. Otherwise no specific tenderness of distal thigh, lower leg, foot/ankle. AROM hip flexion intact. AROM foot/ankle intact. Sensation intact plantar/dorsal foot. Brisk capillary refill. Results & Data Results & Data Laboratory Results . Diagnostic Findings . Hip/Pelvis X-Ray 01/05/25 11:03 XR hip 1V RT w pelvis CLINICAL HISTORY: IN PACU - Post Surgical COMPARISON: None FINDINGS: Right hip prosthesis shows no hardware complication. There is expected soft tissue gas. Skin ivis are present laterally. IMPRESSION: Unremarkable postoperative exam. ACT 112: Negative or not required by law. Electronically signed by: Raymond Allen M.D. 01/05/2025 11:31 AM PG Care Time/CCT Total # of Minutes Spent Total Time Spent with Patient: Total time spent is greater than 50% in coordination of care (as documented) at patient's floor/unit and/or counseling patient: Coding Level of Care Code 34511 Post Operative Follow-Up Diagnoses S/P total right hip arthroplasty Z96.641
[2025-01-08] MEDS ORDERED: REMOVE TRANSDERM-SCOP PATCH SCH (06:00)
== END 2025-01-06 11:31 | disposition home health service (06) ==
LOC: 3E 07:06 → ASU 07:06